=== PATIENT | female | born 2005 | race Caucasian/White ===

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

== ENCOUNTER 2025-02-14 12:58 | Outpatient (CLI) | payer OTHER | END 2025-02-14 12:59 | disposition home or self-care (01) | LOC: CSHWCC 12:58 | PROVIDERS: ATTEND Nurse Practitioner Family | DX: S31.829D Unspecified open wound of left buttock, subsequent encounter (principal); T81.328D Disruption or dehiscence of closure of other specified internal operation (surgical) wound, subsequent encounter | CPT/HCPCS: 99213; G0463 ==

== ENCOUNTER 2025-03-02 07:54 | Outpatient (CLI) | payer OTHER | END 2025-03-02 07:55 | disposition home or self-care (01) | LOC: CSHWCC 07:54 | PROVIDERS: ATTEND Nurse Practitioner Family | DX: S31.829D Unspecified open wound of left buttock, subsequent encounter (principal); T81.328D Disruption or dehiscence of closure of other specified internal operation (surgical) wound, subsequent encounter | CPT/HCPCS: 99213; G0463 ==

== ENCOUNTER 2025-03-06 16:10 | Outpatient (CLI) | payer OTHER | END 2025-03-06 16:11 | disposition home or self-care (01) | LOC: CSHWCC 16:10 | PROVIDERS: ATTEND Nurse Practitioner Family | DX: S31.829D Unspecified open wound of left buttock, subsequent encounter (principal); T81.328D Disruption or dehiscence of closure of other specified internal operation (surgical) wound, subsequent encounter | CPT/HCPCS: 97605 ==

== ENCOUNTER 2025-03-08 15:03 | Outpatient (CLI) | payer OTHER | END 2025-03-08 15:04 | disposition home or self-care (01) | LOC: CSHWCC 15:03 | PROVIDERS: ATTEND Nurse Practitioner Family | DX: S31.829D Unspecified open wound of left buttock, subsequent encounter (principal); T81.328D Disruption or dehiscence of closure of other specified internal operation (surgical) wound, subsequent encounter | CPT/HCPCS: 99213; G0463 ==

== ENCOUNTER 2025-03-16 14:29 | Outpatient (CLI) | payer OTHER | END 2025-03-16 14:30 | disposition home or self-care (01) | LOC: CSHWCC 14:29 | PROVIDERS: ATTEND Nurse Practitioner Family | DX: S31.829D Unspecified open wound of left buttock, subsequent encounter (principal); T81.328D Disruption or dehiscence of closure of other specified internal operation (surgical) wound, subsequent encounter ==

== ENCOUNTER 2025-03-19 11:22 | Outpatient (CLI) | payer OTHER | END 2025-03-19 11:23 | disposition home or self-care (01) | LOC: CSHWCC 11:22 | PROVIDERS: ATTEND Nurse Practitioner Family | DX: S31.829D Unspecified open wound of left buttock, subsequent encounter (principal); T81.328D Disruption or dehiscence of closure of other specified internal operation (surgical) wound, subsequent encounter ==

== ENCOUNTER 2025-03-21 14:52 | Outpatient (CLI) | payer OTHER | END 2025-03-21 14:53 | disposition home or self-care (01) | LOC: CSHWCC 14:52 | PROVIDERS: ATTEND Nurse Practitioner Family | DX: S31.829D Unspecified open wound of left buttock, subsequent encounter (principal); T81.328D Disruption or dehiscence of closure of other specified internal operation (surgical) wound, subsequent encounter | CPT/HCPCS: 97605; 99213; G0463 ==

== ENCOUNTER 2025-03-25 15:08 | Emergency (ER) | payer OTHER ==
[2025-03-25 16:32] LABS: Hematocrit 36.9 % (34.9-44.5); Hemoglobin 11.7 g/dL (12.0-15.5); Mean Corpuscular Hemoglobin 23.3 pg (27.0-33.0); Mean Corpuscular Volume 73.5 fL (81.6-98.3); Platelet Count 267 10x3/uL (150-450); Red Blood Cell (RBC) Count 5.02 10x6/uL (3.90-5.03); White Blood Cell (WBC) Count 6.74 10x3/uL (3.5-10.5)
[2025-03-25 16:45] LABS: ALT (SGPT) 27 U/L (Less than 34); AST (SGOT) 35 U/L (11-34); Albumin 3.3 g/dL (3.1-4.5); Alkaline Phosphatase 46 U/L (40-100); Anion Gap 12 mmol/L (10-20); BUN (Urea Nitrogen) 7 mg/dL (7.0-18.7); Bilirubin, Total 0.6 mg/dL (0.3-1.2); Calc. Creatinine Clearance 0 mL/min (70-130); Calcium 8.6 mg/dL (7.8-10.44); Carbon Dioxide 27 mmol/L (22-29); Chloride 100 mmol/L (98-107); Globulin 3.9 g/dL (2.4-3.5); Glucose 102 mg/dL (70-105); Potassium 2.9 mmol/L (3.5-5.1); Sodium 136 mmol/L (136-145)
[2025-03-25 17:07] LABS: MDiff Complete? YES; Microcytosis SLIGHT = 6-15 cells (100X) (0-5/hpf); Platelet Adequacy Comment Appears Adequate
[2025-03-25 17:54] LABS: Glucose, Urine (Dipstick) Normal (Negative); Leukocyte Negative (Negative); Protein, Urine (Dipstick) 30 mg/dl (Neg-Trace); Specific Gravity, Urine 1.015 (1.005-1.030)
[2025-03-25 18:02] LABS: Pregnancy Test - Urine (BHCG) Negative (Negative); Pregu Control Background? CLEAR/WHITE (CLR/WHITE); Pregu Control Bar Appear? YES (CONTROL BAR)
[2025-03-25 18:09] LABS: Bacteria/HPF 3+ HPF (None Seen); CAUTI Indications for Culture Fever or rigors; RBC/HPF 0-3 HPF (0-3); WBC/HPF 0-3 HPF (0-3)
[2025-03-25 18:10] LABS: Mucous/LPF 2+ LPF (<2+); Urine Culture Reflex No No
== END 2025-03-25 18:33 | disposition home or self-care (01) ==
LOC: CSHERS 15:08
DX: S31.829D Unspecified open wound of left buttock, subsequent encounter (principal); L08.9 Local infection of the skin and subcutaneous tissue, unspecified; E66.01 Morbid (severe) obesity due to excess calories; V89.2XXD Person injured in unspecified motor-vehicle accident, traffic, subsequent encounter
CPT/HCPCS: 36415; 80053; 81001; 81025; 83605; 85025; 87040; 87086; 87426; 93005

== ENCOUNTER 2025-03-30 15:05 | Outpatient (CLI) | payer OTHER | END 2025-03-30 15:06 | disposition home or self-care (01) | LOC: CSHWCC 15:05 | PROVIDERS: ATTEND Nurse Practitioner Family | DX: S31.829D Unspecified open wound of left buttock, subsequent encounter (principal); T81.328D Disruption or dehiscence of closure of other specified internal operation (surgical) wound, subsequent encounter | CPT/HCPCS: 11042; 97605 ==

== ENCOUNTER 2025-04-05 14:44 | Outpatient (CLI) | payer OTHER | END 2025-04-05 14:45 | disposition home or self-care (01) | LOC: CSHWCC 14:44 | PROVIDERS: ATTEND Nurse Practitioner Family | DX: T81.328D Disruption or dehiscence of closure of other specified internal operation (surgical) wound, subsequent encounter (principal); S31.829D Unspecified open wound of left buttock, subsequent encounter | CPT/HCPCS: 11042; 97605 ==

== ENCOUNTER 2025-04-09 11:46 | Outpatient (CLI) | payer OTHER | END 2025-04-09 11:47 | disposition home or self-care (01) | LOC: CSHWCC 11:46 | PROVIDERS: ATTEND Nurse Practitioner Family | DX: S31.829D Unspecified open wound of left buttock, subsequent encounter (principal); T81.328D Disruption or dehiscence of closure of other specified internal operation (surgical) wound, subsequent encounter | CPT/HCPCS: 97605 ==

== ENCOUNTER 2025-04-11 15:35 | Outpatient (CLI) | payer OTHER | END 2025-04-11 15:36 | disposition home or self-care (01) | LOC: CSHWCC 15:35 | PROVIDERS: ATTEND Nurse Practitioner Family | DX: T81.328D Disruption or dehiscence of closure of other specified internal operation (surgical) wound, subsequent encounter (principal); S31.829S Unspecified open wound of left buttock, sequela | CPT/HCPCS: 11042; 97605 ==

== ENCOUNTER 2025-04-17 13:48 | Outpatient (CLI) | payer OTHER | END 2025-04-17 13:49 | disposition home or self-care (01) | LOC: CSHWCC 13:48 | PROVIDERS: ATTEND Nurse Practitioner Family | DX: T81.328D Disruption or dehiscence of closure of other specified internal operation (surgical) wound, subsequent encounter (principal); S31.829S Unspecified open wound of left buttock, sequela | CPT/HCPCS: 97605 ==

== ENCOUNTER 2025-04-20 14:43 | Outpatient (CLI) | payer OTHER | END 2025-04-20 14:44 | disposition home or self-care (01) | LOC: CSHWCC 14:43 | PROVIDERS: ATTEND Nurse Practitioner Family | DX: T81.328D Disruption or dehiscence of closure of other specified internal operation (surgical) wound, subsequent encounter (principal); S31.829S Unspecified open wound of left buttock, sequela | CPT/HCPCS: 11042; 97605 ==

== ENCOUNTER 2025-04-25 10:03 | Outpatient (CLI) | payer OTHER | END 2025-04-25 10:04 | disposition home or self-care (01) | LOC: CSHWCC 10:03 | PROVIDERS: ATTEND Nurse Practitioner Family | DX: T81.328D Disruption or dehiscence of closure of other specified internal operation (surgical) wound, subsequent encounter (principal); S31.829S Unspecified open wound of left buttock, sequela | CPT/HCPCS: 11042; 97605 ==

== ENCOUNTER 2025-05-08 14:31 | Outpatient (CLI) | payer OTHER | END 2025-05-08 14:32 | disposition home or self-care (01) | LOC: CSHWCC 14:31 | PROVIDERS: ATTEND Nurse Practitioner Family | DX: T81.328D Disruption or dehiscence of closure of other specified internal operation (surgical) wound, subsequent encounter (principal); S31.829S Unspecified open wound of left buttock, sequela | CPT/HCPCS: 11042 ==

== ENCOUNTER 2025-05-29 14:00 | Outpatient (CLI) | payer OTHER | END 2025-05-29 14:01 | disposition home or self-care (01) | LOC: CSHWCC 14:00 | PROVIDERS: ATTEND Nurse Practitioner Family | DX: T81.328D Disruption or dehiscence of closure of other specified internal operation (surgical) wound, subsequent encounter (principal); S31.829S Unspecified open wound of left buttock, sequela | CPT/HCPCS: 11042 ==

== ENCOUNTER 2025-06-05 13:20 | Outpatient (CLI) | payer OTHER | END 2025-06-05 13:21 | disposition home or self-care (01) | LOC: CSHWCC 13:20 | PROVIDERS: ATTEND Nurse Practitioner Family | DX: T81.328D Disruption or dehiscence of closure of other specified internal operation (surgical) wound, subsequent encounter (principal); S31.829S Unspecified open wound of left buttock, sequela | CPT/HCPCS: 11042 ==

== ENCOUNTER 2025-06-18 15:08 | Emergency (ER) | payer OTHER ==
[2025-06-18] MEDS ORDERED: Ketorolac Tromethamine 30 MG (1 mL) VIAL ONE (15:47)
== END 2025-06-18 16:57 | disposition home or self-care (01) ==
LOC: CSHERS 15:08
DX: S52.122A Displaced fracture of head of left radius, initial encounter for closed fracture (principal); S52.132A Displaced fracture of neck of left radius, initial encounter for closed fracture; W01.0XXA Fall on same level from slipping, tripping and stumbling without subsequent striking against object, initial encounter; Z55.6 Problems related to health literacy
CPT/HCPCS: 29105; 96372; J1885

== ENCOUNTER 2025-07-05 13:44 | Outpatient (CLI) | payer OTHER | END 2025-07-05 13:45 | disposition home or self-care (01) | LOC: CSHWCC 13:44 | PROVIDERS: ATTEND Nurse Practitioner Family | DX: T81.328D Disruption or dehiscence of closure of other specified internal operation (surgical) wound, subsequent encounter (principal); S31.829S Unspecified open wound of left buttock, sequela | CPT/HCPCS: 97597 ==

== ENCOUNTER 2025-07-05 14:36 | Emergency (ER) | payer OTHER, SELFPAY ==
[2025-07-05] MEDS ORDERED: HYDROcodone/Acetaminophen 10/325 mg Tablet ONE (15:23)
== END 2025-07-05 16:18 | disposition home or self-care (01) ==
LOC: CSHERS 14:36
DX: S52.122A Displaced fracture of head of left radius, initial encounter for closed fracture (principal); X58.XXXA Exposure to other specified factors, initial encounter
CPT/HCPCS: 29105

== ENCOUNTER 2025-07-10 14:38 | Outpatient (CLI) | payer OTHER | END 2025-07-10 14:39 | disposition home or self-care (01) | LOC: CSHWCC 14:38 | PROVIDERS: ATTEND Nurse Practitioner Family | DX: T81.328D Disruption or dehiscence of closure of other specified internal operation (surgical) wound, subsequent encounter (principal); S31.829S Unspecified open wound of left buttock, sequela ==